=== PATIENT | male | born 1980 | race Caucasian/White ===

== ENCOUNTER 2020-12-16 16:36 | Observation (INO) | payer MEDICARE, OTHER ==
[~2020-12-16] VITALS: Ht 180.3 cm; Wt 86.2 kg
[2020-12-16 19:24] LABS: RED BLOOD COUNT 5.09 M/UL (4.20-5.50); WHITE BLOOD COUNT 23.3 K/UL (4.5-11.0)
[2020-12-16 19:42] LABS: BUN/CREATININE RATIO 21 (0-10)
[2020-12-18 05:01] LABS: HEMOGLOBIN 16.2 gm/dl (14.0-17.5); RED BLOOD COUNT 5.09 M/UL (4.20-5.50)
[2020-12-18 05:21] LABS: BUN/CREATININE RATIO 30 (0-10)
--- NOTE | 2020-12-18 08:03 | NUR ---
PATIENT LEFT ROOM THIS AM AND STATED HE WAS GOING TO WALK AROUND ON HOSPITAL FLOOR. THIS NURSE RECIEVED A CALL FROM LEGAL DIRECTOR STATING THAT PATIENT'S IV POLE WAS FOUND IN PARKING LOT UNATTACHED FROM PATIENT. PATIENT'S HEP LOCK IS ON POLE WELL, WITH TUBING TIED IN A KNOT. PATIENT'S IV CATHETER IS NOT PRESENT. ALL PATIENT'S BELONGINGS ARE STILL IN ROOM 4116. SECURITY NOTIFIED, SWEPT GROUNDS FOR PATIENT WITH NO SUCCESS. YOKE PRESSER AWARE, AWARE.
[2020-12-18 08:14] LABS: HIV SCREEN 4TH GENERATION WRFX Non Reactive (Non Reactive)
[2020-12-18 09:14] LABS: RPR Non Reactive (Non Reactive)
[2020-12-18 10:14] LABS: HBSAG SCREEN Negative (Negative); HEP A AB, IGM Negative (Negative); HEP B CORE AB, IGM Negative (Negative); HEP C VIRUS AB >11.0 (0.0-0.9)
== END 2020-12-18 08:08 | disposition left against medical advice (07) ==
LOC: ER1 16:36 → MED SURG 4 20:06 → CDU 20:06 → MED SURG 4 12-17 14:53
PROVIDERS: Emergency Medicine; Internal Medicine; Orthopaedic Surgery; ADMIT Internal Medicine
PROC: 3E0T3BZ Introduction of Anesthetic Agent into Peripheral Nerves and Plexi, Percutaneous Approach (ICD-10-PCS; principal; 2020-12-17 11:45)
PROC: 0PB90ZZ Excision of Right Clavicle, Open Approach (ICD-10-PCS; principal; 2020-12-17 11:45)
PROC: 0R9 Upper Joints, Drainage (ICD-10-PCS; principal; 2020-12-17 11:45)
PROC: 3E0U029 Introduction of Other Anti-infective into Joints, Open Approach (ICD-10-PCS; principal; 2020-12-17 11:45)
DX: A41.9 Sepsis, unspecified organism (principal); M00.811 Arthritis due to other bacteria, right shoulder; G89.18 Other acute postprocedural pain; F17.210 Nicotine dependence, cigarettes, uncomplicated; F19.10 Other psychoactive substance abuse, uncomplicated; Z56.0 Unemployment, unspecified; Z53.29 Procedure and treatment not carried out because of patient's decision for other reasons; Z20.822 Contact with and (suspected) exposure to COVID-19
CPT/HCPCS: 36415; 73020; 73030; 73201; 76000; 80048; 80053; 80074; 80202; 80307; 82550; 82553; 83605; 83735; 84100; 84484; 85025; 85652; 86140; 86592; 87040; 87070; 87077; 87186; 87205; 87389; 96365; 96366; 96367; 96375; 96376; 99285; C1713; G0378; J0690; J0696; J1100; J1170; J1650; J1885; J2250; J2270; J2405; J2550; J2704; J2795; J3010; J3260; J3370; J7050; J7070; J7120; Q9967; U0002

== ENCOUNTER 2022-03-09 14:30 | Emergency (ER) | payer OTHER, MEDICARE ==
[2022-03-09 15:33] LABS: BUN/CREATININE RATIO 27 (0-10)
[2022-03-09] MEDS ORDERED: IBUPROFEN800 MG PO (16:25)
== END 2022-03-09 16:44 | disposition home or self-care (01) ==
LOC: ER1 14:30
PROVIDERS: Preventive Medicine Occupational Medicine
DX: S16.1XXA Strain of muscle, fascia and tendon at neck level, initial encounter (principal); S30.1XXA Contusion of abdominal wall, initial encounter; S60.221A Contusion of right hand, initial encounter; F17.200 Nicotine dependence, unspecified, uncomplicated; V49.50XA Passenger injured in collision with unspecified motor vehicles in traffic accident, initial encounter; Y92.410 Unspecified street and highway as the place of occurrence of the external cause
CPT/HCPCS: 36600; 70450; 71045; 71260; 72125; 72128; 72131; 72170; 80053; 80307; 82550; 82553; 82803; 82962; 83605; 84484; 85610; 85730; 86850; 86900; 86901; 93005; 99284; G0480; Q9967